=== PATIENT | female | born 1965 | race Caucasian/White ===

== ENCOUNTER 2020-04-08 14:43 | Observation (INO) ==
[2020-04-08] MEDS ORDERED: methylPREDNISolone SOD SUCC 125 MG/2 ML VIAL IV ONE (14:49)
[2020-04-08] MEDS ORDERED: diphenhydrAMINE 50 MG/ML VIAL IV ONE (14:50)
[2020-04-08] MEDS ORDERED: 0.9 % SODIUM CHLORIDE 250 ML IV SCH ×2 (15:00→17:06)
[2020-04-08] MEDS ORDERED: TERBUTALINE 1 MG/ML VIAL SQ ONE (15:01)
[2020-04-08] MEDS ORDERED: FAMOTIDINE/PF 20 MG/2 ML VIAL IV ONE (15:21)
[2020-04-08] MEDS ORDERED: ONDANSETRON 4 MG/2 ML VIAL IV ONE ×2 (15:25)
--- NOTE | 2020-04-08 15:28 | Emergency Department Note ---
Allergic Reaction HPI - General Chief complaint: Allergic Reaction Stated complaint: Swollen Tongue, Trouble breathing Time Seen by Provider: 04/08/20 14:45 Source: patient Mode of arrival: ambulatory Limitations: no limitations - History of Present Illness HPI Narrative: Patient presents to ED with history of swollen tongue. She does use nighttime oxygen, states that last night she had to put her oxygen on, swelling of the tongue developed today. During the course of the day and gradually worsened to the point where she is no longer able to speak . She does indicate pain in her mouth, throat,, denies chest pain, denies eating foods that would precipitate an allergic reaction, she's had no food allergies per se, but she does indicate that she takes lisinopril. The last dose that she took was last night. She presents to ED via private vehicle, at this time. She still able to breathe through her nose, but she is extremely agitated secondary to swollen tongue. MD complaint: facial swelling Onset (ago): hour(s) Exposure: unknown Symptoms: difficulty breathing - Related Data Home Medications Medication Instructions Recorded Confirmed LORazepam [Ativan] 2 mg PO HSP PRN 07/04/16 10/08/19 Levothyroxine [Synthroid] 50 mcg PO DAILY 07/04/16 10/08/19 Lidocaine 5% Oint 1 dose TOPICAL DAILY PRN 07/04/16 10/08/19 Sertraline [Zoloft] 50 mg PO DAILY 07/04/16 10/08/19 metoprolol succinate 25 mg 25 mg PO QDAY 10/27/17 10/08/19 tablet,extended release 24 hr hydrocodone 10 mg-acetaminophen 1 tab PO .COMPLEX PRN tab 09/07/18 10/08/19 325 mg tablet lurasidone 20 mg tablet 20 mg PO QDAY 09/07/18 10/08/19 minocycline 100 mg tablet 100 mg PO .COMPLEX 09/07/18 10/08/19 Previous Rx's Medication Instructions Recorded ipratropium 20 mcg-albuterol 100 1 puff INHALATION Q4H PRN #4 g 10/27/17 mcg/actuation mist for inhalation phenazopyridine 100 mg tablet 100 mg PO TID PRN 0 Days #6 tab 10/08/19 gabapentin 300 mg capsule 300 mg PO TID PRN #90 cap 11/19/19 Allergies Allergy/AdvReac Type Severity Reaction Status Date / Time BAND AIDS Allergy Unknown Rash Uncoded 10/08/19 11:23 Review of Systems Limitations: ROS unobtainable due to patients medical condition Past Medical History - Past Medical History Source: old records reviewed, nursing notes reviewed Medical history: Reports: COPD, hypertension, thyroid disease, other (IBD, melanoma) Psychiatric history: Reports: depression Surgical history ED: Reports: cholecystectomy, hysterectomy, knee replacement, other (orthopedic surgeries) Family history: Reports: non-contributory - Social History smoking status: Former smoker Alcohol use: Reports: None Drug use: Reports: none Physical Exam Limitations: no limitations General appearance: alert, in distress, nontoxic, tearful Head: atraumatic Eye: Present: PERRL, EOMI, conjunctival injection, visual kaplan intact. Absent: periorbital swelling, periorbital tenderness ENT: Present: mucous membranes moist, normal external ear exam, other (enormously swollen tongue, protruding out of her mouth. Extremely edematous and swollen. There is a small laceration on the underside of the tongue was a little bit of bleeding from her teeth piercing. The tongue. She still has breath sounds from breathing through her nose clear. She does not sound stridorous.) Neck: Present: other (short, obese almost nonexisting neck.) Chest: Present: symmetric chest wall rise Respiratory: Present: normal lung sounds bilaterally, respiratory distress, decreased breath sounds. Absent: wheezes Cardiovascular: Present: regular rate, tachycardia Abdominal: Present: soft. Absent: distention, tenderness Extremities: Present: normal inspection, full ROM. Absent: pedal edema Back: Present: normal inspection. Absent: vertebral tenderness Neurological: Present: alert, oriented X3 Psychiatric: Present: normal affect Skin: Present: warm, dry, diaphoretic. Absent: cyanosis, pallor Course - Reevaluation(s) Reevaluation #1: Initially spoke with Dr. manuel, on-call for ENT, who stated that he no longer had the equipment to do nasal intubation with the intubating bronchoscope up. I spoke with anesthesia and they said they would be down immediately. We ordered FFP, we did order medications for her to see if that would help anything, but medication, so far have not affected the swelling, we may have to intubate her because there is concern that she will lose her airway with the amount of swelling that she has, and I explained that as best as I could to the patient and. We'll have her sign a consent form, medications and FFP were ordered. The. Aesthesias here at this time. Talking with the patient. They do have an intubating bronchoscope, which we may have to use at this time given impending airway loss. Reevaluation #2: She had very little relief from Solu-Medrol, Benadryl, etc. After we hung FFP. She seemed to get better in the sense that she was able to vocalize a few words, she was able to bring her lips together over the tongue and she subjectively felt like the tongue swelling was going down the. We will still need to watch her in the ICU with close airway monitoring and intubation readiness. Should her tongue swelling, worsening. Also anesthesia recommended to further units of FFP on standby. Anesthesia was present, ready to intubate. We had her sign a consent form for that. I spoke with DR Barnett regarding observation in the ICU and he will put in. Further orders Vital Signs Pulse Rate 117 H 04/08/20 14:44 Respiratory Rate 24 H 04/08/20 14:44 Blood Pressure 141/73 04/08/20 14:44 Pulse Oximetry (%) 97 04/08/20 14:44 Pulse Rate 120 H 04/08/20 16:21 Respiratory Rate 17 04/08/20 16:21 Blood Pressure 119/87 04/08/20 16:21 Pulse Oximetry (%) 96 04/08/20 16:21 Allergic Reaction - MDM Narrative Medical decision making narrative: Final diagnosis is angioedema acute necessitating close observation in the ICU - Lab Data Lab results reviewed: Yes I reviewed the patient's lab results. Result diagrams: 04/08/20 15:19 04/08/20 15:19 Critical Care Time Critical Care Time: Yes Total Critical Care Time: 20 Attestation: I attest to the fact that the patient needed emergent attention and intervention 20 minutes Disposition Pt seen by PEDIATRIC PSYCHOLOGIST/PA only: No Clinical Impression: Angioedema Disposition: Xfer As Outpt/Obs ([facility]) Condition: Serious Referrals: Ciara Perez ARNP [Primary Care Provider] -
[2020-04-08] MEDS ORDERED: morphine 2 MG/ML VIAL ONE ×2 (15:33→15:45)
[2020-04-08] MEDS ORDERED: KETOROLAC 30 MG/ML VIAL IV ONE (16:07)
[2020-04-08] MEDS ORDERED: ACETAMINOPHEN 1,000 MG/100 ML BOTTLE IV ONE (16:09)
[2020-04-08] MEDS ORDERED: TRANEXAMIC ACID 1,000 MG/10 ML VIAL IV ONE (16:09)
[2020-04-08 16:35] LABS: Basophils # (Auto) 0.15 K/mcL (0.00-0.30); Basophils % (Auto) 1.4 % (0.0-2.0); Eosinophils # (Auto) 0.44 K/mcL (0.00-0.70); Eosinophils % (Auto) 4.2 % (0.0-7.0); Granulocytes % (Auto) 55.1 % (38.0-78.0); Hematocrit 37.6 % (34.1-44.9); Lymphocytes # (Auto) 3.18 K/mcL (1.50-4.80); Lymphocytes % (Auto) 30.5 % (15.5-49.0); Mean Cell Volume 89.5 fL (80.0-100.0); Mean Corpuscular HGB Conc 31.9 g/dL (31.0-36.0); Mean Platelet Volume 11.2 fL (7.4-10.4); Monocytes # (Auto) 0.92 K/mcL (0.10-0.90); Monocytes % (Auto) 8.8 % (1.0-12.0); Platelet Count 340 K/mcL (140-440); Red Cell Distribution Width 15.2 % (11.5-14.5); WBC 10.4 K/mcL (4.50-11.00)
[2020-04-08 17:02] LABS: ALT/SGPT 19 U/l (0-40); AST/SGOT 22 U/l (0-37); Albumin 3.9 gm/dL (3.2-5.2); Alkaline Phosphatase 92 U/L (39-117); Bilirubin,Total 0.2 mg/dL (0.0-1.0); Blood Urea Nitrogen 17 mg/dl (6-20); Calcium 9.8 mg/dl (8.6-10.4); Carbon Dioxide 24 mmol/L (22-30); Chloride 98 mmol/L (96-108); Globulin 3.9 gm/dL (2.2-3.7); Glomerular Filtration Rate 38; Glucose 114 mg/dL (70-105)
[2020-04-08] MEDS ORDERED: ACETAMINOPHEN 325 MG TABLET PO PRN (17:06)
[2020-04-08] MEDS ORDERED: MAGNESIUM SULFATE 2 GM/50 ML BAG IV PRN (17:06)
[2020-04-08] MEDS ORDERED: ONDANSETRON 4 MG ODT TABLET SL PRN (17:06)
[2020-04-08] MEDS ORDERED: ONDANSETRON 4 MG/2 ML VIAL IV PRN (17:06)
[2020-04-08] MEDS ORDERED: PROMETHAZINE 25 MG/ML VIAL IV PRN (17:06)
--- NOTE | 2020-04-08 17:08 | Internal Med History&Physical ---
Medical - H&P: [facility] Patient information: Note initiated : 04/08/20 at 4:48 pm Service Date, if different from initiated Date: [] Patient: Federica Boyer a 55 y/o F admitted on for Swollen Tongue, Trouble breathing. Chief Complaint: [] Chief complaint: Tongue swelling/difficulty opening mouth History of present illness: Ms. Boyer is a 55 year old F with a history of hypertension/inflammatory arthritis/RAD who presents to the ER with rapid onset and progressive tongue swelling that started 2 hours prior to presentation. Patient was's sitting at home reading a book when she started noticing abnormal sensation in her tongue followed by progressive swelling of lips, mouth and throat and tongue. She does not recollect exact precipitant or taking new medications. She denies insect bite or sting. She denies recent changes in diet. She also denies prior similar episode. Initial work-up in the ER was consistent with near airway compromise with secondary tongue swelling. Emergent consultation was sought with anesthesia/surgery for nasotracheal intubation however following administration of IV steroids/antihistamines/anticholinergics and FFP her symptoms started to improve. She over the next hour was able to communicate and phonate. No evidence of stridor. She is complains of persistent throat pain. Hospitalist service was consulted for admission and overnight observation and intubation if necessary if evidence of airway compromise noted. Patient denies fever, chills, diarrhea, headache, lightheadedness or palpitation or shortness of breath. She denies history of hives or drug eruptions in the past Review of systems A 10 point review system was performed and is negative except for ones cussed above Medical - H&P: PMH Medical history: Myalgia (Acute) Inflammatory arthritis (Acute) Polyarthralgia (Acute) Vitamin D deficiency, unspecified (Chronic) Pain in joint (Chronic) Anxiety (Chronic) Persistent insomnia (Chronic) exterminator helper use of drug (Chronic) Hypothyroidism (Chronic) Hypertension, essential (Chronic) Elevated C-reactive protein (CRP) (Acute) Elevated erythrocyte sedimentation rate (Acute) Urinary tract infection (Acute) Vaginitis (Acute) Sore throat (viral) (Acute) Surgical History No pertinent past surgical history (Chronic) Family History Other No pertinent family history Social History smoking status: Former smoker alcohol intake frequency: does not drink substance use type: former substance user, marijuana Lives alone, mother lives nearby Medical - H&P: Meds Home Medications Medication Instructions Recorded Confirmed Type LORazepam [Ativan] 1 mg PO HSP PRN 07/04/16 04/08/20 History Levothyroxine [Synthroid] 88 mcg PO DAILY 07/04/16 04/08/20 History Lidocaine 5% Oint 1 dose TOPICAL DAILY PRN 07/04/16 04/08/20 History ipratropium 20 mcg-albuterol 100 1 puff INHALATION Q4H PRN #4 g 10/27/17 04/08/20 Rx mcg/actuation mist for inhalation hydrocodone 10 mg-acetaminophen 1 tab PO .COMPLEX PRN tab 09/07/18 04/08/20 History 325 mg tablet lurasidone 20 mg tablet 20 mg PO QDAY 09/07/18 10/08/19 History gabapentin 300 mg capsule 300 mg PO TID PRN #90 cap 11/19/19 04/08/20 Rx Latuda 20 mg PO DAILY 04/08/20 04/08/20 History Lisinopril-Hctz 10-12.5 mg Tab 10 mg PO DAILY 04/08/20 04/08/20 History Allergies Allergy/AdvReac Type Severity Reaction Status Date / Time BAND AIDS Allergy Unknown Rash Uncoded 10/08/19 11:23 Medical - H&P: Exam - Constitutional Vitals: Pulse Resp BP Pulse Ox 120 H 17 119/87 96 04/08/20 16:21 04/08/20 16:21 04/08/20 16:21 04/08/20 16:21 General appearance: morbidly obese Exam: Alert and anxious Head normocephalic Oral cavity blocked with diffuse tongue swelling and pooling secretions Eye movement symmetrical Neck no evidence of stridor/lymphadenopathy however diffuse swelling S1-S2 regular rhythm Diminished breath sounds bases with no rhonchi Pendulous abdomen No lower extremity lymphedema/hives/joint swelling Skin no suspicious lesion Psych anxious Neuro nonfocal Medical - H&P: Reslt - Labs CBC & Chem 7: 04/08/20 15:19 04/08/20 15:19 Labs: Short CBC 04/08/20 Range/Units 15:19 WBC 10.4 (4.50-11.00) K/mcL Hgb 12.0 (11.2-15.7) g/dL Hct 37.6 (34.1-44.9) % Plt Count 340 (140-440) K/[facility] Medical - H&P: A/P (1) Angioedema Current visit: Yes Status: Acute * Acute angioedema possibly IRINA inhibitor mediated. Continue FFP/antihistamines/steroids. Close monitoring for airway compromise/stridor. Anesthesia consult for intubation if necessary. Admit as observation * Hypothyroidism contraction * Neuropathy continue gabapentin * Degenerative joint disease continue hydrocodone * Anxiety continue lorazepam * Hypertension hold IRINA inhibitor. Continue thiazide * Full code * Prophylaxis heparin Plan * Observation ICU admit * Intubate if evidence of airway compromise * FFP additional 2 units * Close hemodynamic monitoring * Anesthesia consult
--- NOTE | 2020-04-08 18:07 | General Surgery Progress Note ---
Surgical - Auxillary Note - Subjective Patient Information: Note initiated : 04/08/20 at 5:59 pm Service Date, if different from initiated Date: [] Patient: Federica Boyer 55 y/o F admitted on 04/08/20 for Swollen Tongue, Trouble breathing. Chief Complaint: Called to ER at 1500pm by Dr. Roa for patient with severe a ngioedema suspected from IRINA inhibitor reaction. Verbally ordered 2 units Fresh Frozen Plasma and 1gm Tranexamic Acid. Arrived at bedside by 1505pm. Patient airway assessed, severe angioedema noted. Vital signs stable. Benadryl, toradol, orfimev, and morphine ordered. Patient asked only yes/no questions as she was unable to talk. Waited for FFP to arrive as patient was in distress but stable. Able to talk to patient and keep her calm and focus on controlled breathing. Upon administration of FFP at approximately 1545pm, patient's angioedema resolving, patient slowly able to close mouth and eventually begin to vocalize relief of airway discomfort and breathing. Patient transferred to ICU and report given to Dr. Manzanares. Discussed FFP and tranexamic acid intermittently throughout the night. Back up plan was planned and prepared to be awake nasal intubation with fiberoptic scope and general surgery at bedside for emergent tracheostomy/cricothyrotomy if needed.
[2020-04-08] MEDS: morphine 2 MG/ML VIAL IV PRN (19:20)
[2020-04-08] MEDS: HEPARIN 5,000 UNIT/ML VIAL SQ SCH (20:29)
[2020-04-08] MEDS: 0.9 % SODIUM CHLORIDE 10 ML SYRINGE IV SCH (20:30)
[2020-04-08] MEDS ORDERED: SENNOSIDES/DOCUSATE SODIUM 1 TAB TABLET PO SCH (21:00)
[2020-04-08] MEDS ORDERED: LORazepam 2 MG/ML VIAL IV ONE (22:47)
[2020-04-08] MEDS ORDERED: LORazepam 2 MG/ML VIAL ONE (23:09)
[2020-04-09] MEDS: morphine 2 MG/ML VIAL IV PRN ×2 (02:01→06:50)
[2020-04-09] MEDS: 0.9 % SODIUM CHLORIDE 10 ML SYRINGE IV SCH (06:00)
[2020-04-09 07:02] LABS: Hematocrit 32.4 % (34.1-44.9); Hemoglobin 10.2 g/dL (11.2-15.7); Mean Cell Volume 90.3 fL (80.0-100.0); Mean Corpuscular HGB Conc 31.5 g/dL (31.0-36.0); Mean Platelet Volume 10.6 fL (7.4-10.4); Platelet Count 292 K/mcL (140-440); RBC 3.59 M/mcL (3.59-5.38); Red Cell Distribution Width 15.1 % (11.5-14.5); WBC 10.4 K/mcL (4.50-11.00)
[2020-04-09 07:43] LABS: ALT/SGPT 21 U/l (0-40); AST/SGOT 23 U/l (0-37); Albumin 3.8 gm/dL (3.2-5.2); Albumin/Globulin Ratio 1.1 (1.0-2.3); Alkaline Phosphatase 82 U/L (39-117); Bilirubin,Direct < 0.2 mg/dL (0.0-0.3); Bilirubin,Total 0.2 mg/dL (0.0-1.0); Calcium 9.4 mg/dl (8.6-10.4); Carbon Dioxide 24 mmol/L (22-30); Chloride 102 mmol/L (96-108); Globulin 3.6 gm/dL (2.2-3.7); Glomerular Filtration Rate 35; Glucose 134 mg/dL (70-105); Lactate Dehydrogenase 171 U/L (94-250); Phosphorous 3.2 mg/dL (2.7-4.5); Triglycerides 78 mg/dl (<150); Uric Acid 8.8 mg/dL (2.5-8.0)
[2020-04-09 08:03] LABS: Blood Urea Nitrogen 23 mg/dl (6-20)
[2020-04-09 08:17] LABS: Band Neutrophils % 1 % (0-10); Lymphocytes % 10 % (15-49); Monocytes % (Manual) 1 % (1-12); Platelet Estimate NORMAL (NORMAL); RBC Morphology NORMAL (NORMAL); Segmented Neutrophils % 88 % (38-78)
[2020-04-09] MEDS: HEPARIN 5,000 UNIT/ML VIAL SQ SCH (08:35)
[2020-04-09] MEDS ORDERED: amLODIPine 5 MG TABLET PO SCH (09:00)
[2020-04-09] MEDS ORDERED: FUROSEMIDE 20 MG/2 ML VIAL IV ONE (10:08)
--- NOTE | 2020-04-09 10:10 | Discharge Summary ---
Medical - DS: Prov Patient information: Note initiated : 04/09/20 at 10:08 am Service Date, if different from initiated Date: [] Patient: Federica Boyer 55 y/o F admitted on 04/08/20 for Swollen Tongue, Trouble breathing. Chief Complaint: [] Date of admission: 04/08/20 17:00 Discharge date: 04/09/20 Primary care physician: Ciara Perez Consults: 04/08/20 Consult to Physician [CONS] Stat Comment: Consulting Provider: Zay Manzanares Reason For Exam: Physician to Consult Consult to Physician [CONS] Stat Comment: Consulting Provider: Lloyd Ferguson Reason For Exam: Physician to Consult Medical - DS: Meds - Discharge Medications Prescriptions: Hydrochlorothiazide 12.5 mg PO DAILY #30 cap Transmission Status: Received by [facility] amLODIPine [Norvasc] 5 mg PO DAILY #30 tab Transmission Status: Received by [facility] Active and Home Medications: Home Medications LORazepam [Ativan] 1 mg PO HSP PRN 07/04/16 [History Confirmed 04/08/20 Last Taken Unknown] Levothyroxine [Synthroid] 88 mcg PO DAILY 07/04/16 [History Confirmed 04/08/20 Last Taken Unknown] Lidocaine 5% Oint 1 dose TOPICAL DAILY PRN 07/04/16 [History Confirmed 04/08/20 Last Taken Unknown] ipratropium 20 mcg-albuterol 100 mcg/actuation mist for inhalation 1 puff INHALATION Q4H PRN #4 g 10/27/17 [Rx Confirmed 04/08/20 Last Taken Unknown] hydrocodone 10 mg-acetaminophen 325 mg tablet 1 tab PO .COMPLEX PRN tab 09/07/18 [History Confirmed 04/08/20 Last Taken Unknown] lurasidone 20 mg tablet 20 mg PO QDAY 09/07/18 [History Confirmed 04/09/20 Last Taken Unknown] gabapentin 300 mg capsule 300 mg PO TID PRN #90 cap 11/19/19 [Rx Confirmed 04/08/20 Last Taken Unknown] Hydrochlorothiazide 12.5 mg PO DAILY #30 cap 04/09/20 [Rx Last Taken Unknown] amLODIPine [Norvasc] 5 mg PO DAILY #30 tab 04/09/20 [Rx Last Taken Unknown] Medical - DS: Hosp Hospital Course: Discharge diagnosis * Acute angioedema possibly IRINA inhibitor mediated. Clinical improvement noted on FFP infusion/antihistamines/steroids. Much improved tongue swelling. Able to vocalize, swallow and eat. Discharging home with advised to discontinue IRINA inhibitor * Hypothyroidism -continue thyroxine * Neuropathy continue gabapentin * Degenerative joint disease continue hydrocodone * Anxiety continue home dose lorazepam * Hypertension continue thiazide/amlodipine 5 mg. Discontinued IRINA inhibitor. Brief hospital course Ms. Boyer is a 55 year old F with a history of hypertension/inflammatory arthritis/RAD who presents to the ER with rapid onset and progressive tongue swelling that started 2 hours prior to presentation. Patient was's sitting at home reading a book when she started noticing abnormal sensation in her tongue followed by progressive swelling of lips, mouth and throat and tongue. She does not recollect exact precipitant or taking new medications. She denies insect bite or sting. She denies recent changes in diet. She also denies prior similar episode. Initial work-up in the ER was consistent with near airway compromise with secondary tongue swelling. Emergent consultation was sought with anesthesia/surgery for nasotracheal intubation however following administration of IV steroids/antihistamines/anticholinergics and FFP her symptoms started to improve. She over the next hour was able to communicate and phonate. No evidence of stridor. She is complains of persistent throat pain. Hospitalist service was consulted for admission and overnight observation and intubation if necessary if evidence of airway compromise noted. Patient denies fever, chills, diarrhea, headache, lightheadedness or palpitation or shortness of breath. She denies history of hives or drug eruptions in the past 04/09.-Patient clinically improved following administration of FFP/antihistamines and steroids. Able to swallow/vocalize and eat. No overnight events. No evidence of airway compromise. Discharging home with advised to follow-up with primary care physician. Advised to refrain from future use of IRINA inhibitor's due to life-threatening angioedema. Discharge diagnosis: . - Time Spent with Patient Total time spent providing and/or coordinating discharge services: Greater than 30 minutes Medical - DS: Exam - Constitutional Vitals: Vital Signs Temp Pulse Pulse Resp BP BP Pulse Ox 04/09/20 08:16 116 H 17 95 04/09/20 08:01 98.6 F 117 H 20 138/86 94 04/09/20 07:11 18 96 04/09/20 07:01 113 H 15 104/66 95 04/09/20 06:01 113 H 15 142/83 96 04/09/20 05:00 110 H 14 146/85 99 04/09/20 04:01 98.1 F 111 H 15 149/99 99 04/09/20 03:01 112 H 17 134/87 98 04/09/20 02:01 117 H 23 H 129/102 99 04/09/20 02:00 95 04/09/20 01:01 118 H 17 131/80 98 04/09/20 00:48 117 H 18 142/81 97 04/09/20 00:16 117 H 18 130/65 96 04/09/20 00:01 98.4 F 116 H 15 117/73 95 04/08/20 23:59 116 H 17 112/70 94 04/08/20 23:01 115 H 18 125/69 92 04/08/20 22:01 117 H 17 123/90 96 04/08/20 21:01 119 H 19 106/60 93 04/08/20 20:16 97.7 F 117 H 17 119/70 96 04/08/20 20:01 119 H 17 114/72 97 04/08/20 20:00 97 04/08/20 19:16 99.0 F 120 H 15 118/67 97 04/08/20 19:06 121 H 20 125/74 95 04/08/20 19:01 98.6 F 120 H 20 116/63 95 04/08/20 18:01 122 H 18 124/72 95 04/08/20 17:46 123 H 23 H 118/104 93 04/08/20 17:31 18 122/70 96 04/08/20 17:20 20 122/71 96 04/08/20 17:06 99.9 F H 33 H 122/81 97 04/08/20 17:00 99.0 F 117 H 122 H 20 133/82 122/70 95 04/08/20 16:55 117 H 21 95 04/08/20 16:51 119 H 20 133/82 93 04/08/20 16:46 120 H 18 128/78 93 04/08/20 16:41 119 H 18 121/98 95 04/08/20 16:36 120 H 21 140/81 92 04/08/20 16:31 121 H 20 131/88 94 04/08/20 16:26 119 H 17 129/108 95 04/08/20 16:21 120 H 17 119/87 96 04/08/20 16:20 120 H 14 97 04/08/20 16:16 120 H 21 129/83 94 04/08/20 16:11 119 H 18 155/128 92 04/08/20 16:08 120 H 29 H 132/89 97 04/08/20 16:07 114 H 29 H 94 04/08/20 16:06 119 H 21 96 04/08/20 16:01 116 H 18 149/94 96 04/08/20 15:56 120 H 21 131/69 95 04/08/20 15:51 119 H 19 164/66 98 04/08/20 15:46 123 H 19 165/80 97 04/08/20 15:41 125 H 16 97 04/08/20 15:36 123 H 26 H 99 04/08/20 15:34 123 H 20 210/149 98 04/08/20 15:33 20 96 04/08/20 15:31 123 H 25 H 210/149 98 04/08/20 15:28 19 04/08/20 15:22 128 H 23 H 144/113 97 04/08/20 15:16 113 H 13 147/99 99 04/08/20 15:01 116 H 15 171/128 98 04/08/20 15:00 15 04/08/20 14:44 117 H 24 H 141/73 97 Intake and Output 04/08/20 04/09/20 04/09/20 21:59 05:59 13:59 Intake Total 822 197 Output Total 350 300 125 Balance 472 -103 -125 Intake: IV 168 Sodium Chloride 0.9% 250 ml @ 68 20 mls/hr IV .[id number] [facility] Rx#: [id number] Blood Product 654 197 Output: Void Amount 350 300 125 Other: Urine Appearance Clear Clear Clear Urine Color Bright Yellow Bright Yellow Bright Yellow Weight 308 lb 6.4 oz Medical - DS: Data Labs on day of discharge: Labs from last 24 hours 04/09/20 04/09/20 04/08/20 05:05 05:05 15:19 WBC 10.4 RBC 3.59 Hgb 10.2 L Hct 32.4 L MCV 90.3 MCH 28.4 MCHC 31.5 RDW 15.1 H Plt Count 292 MPV 10.6 H Gran % Lymph % (Auto) [place] % (Auto) Eos % (Auto) Baso % (Auto) Gran # Lymph # (Auto) [place] # (Auto) Eos # (Auto) Baso # (Auto) Total Counted 100 Seg Neutrophils % 88 H Band Neutrophils % 1 Lymphocytes % 10 L Monocytes % (Manual) 1 Platelet Estimate Normal RBC Morphology Normal Sodium 138 Potassium 5.5 H Chloride 102 Carbon Dioxide 24 Anion Gap 12.0 BUN 23 H Creatinine 1.6 H GFR Calculation 35 Glucose 134 H Uric Acid 8.8 H Calcium 9.4 Phosphorus 3.2 Magnesium 1.6 Total Bilirubin 0.2 Direct Bilirubin < 0.2 GGT 47 H AST 23 ALT 21 Alkaline Phosphatase 82 Lactate Dehydrogenase 171 Troponin T < 0.01 Total Protein 7.4 Albumin 3.8 Globulin 3.6 Albumin/Globulin Ratio 1.1 Triglycerides 78 04/08/20 04/08/20 15:19 15:19 WBC 10.4 RBC 4.20 Hgb 12.0 Hct 37.6 MCV 89.5 MCH 28.6 MCHC 31.9 RDW 15.2 H Plt Count 340 MPV 11.2 H Gran % 55.1 Lymph % (Auto) 30.5 [place] % (Auto) 8.8 Eos % (Auto) 4.2 Baso % (Auto) 1.4 Gran # 5.74 Lymph # (Auto) 3.18 [place] # (Auto) 0.92 H Eos # (Auto) 0.44 Baso # (Auto) 0.15 Total Counted Seg Neutrophils % Band Neutrophils % Lymphocytes % Monocytes % (Manual) Platelet Estimate RBC Morphology Sodium 139 Potassium 4.4 Chloride 98 Carbon Dioxide 24 Anion Gap 17.0 H BUN 17 Creatinine 1.5 H GFR Calculation 38 Glucose 114 H Uric Acid Calcium 9.8 Phosphorus Magnesium Total Bilirubin 0.2 Direct Bilirubin GGT AST 22 ALT 19 Alkaline Phosphatase 92 Lactate Dehydrogenase Troponin T Total Protein 7.8 Albumin 3.9 Globulin 3.9 H Albumin/Globulin Ratio 1.0 Triglycerides Medical - DS: A/P - Patient/Caregiver Discharge Instructions Activity: increase activity as tolerated Diet: Regular Diet Additional Instructions: Discontinue IRINA inhibitor Follow-up PCP in 7 days--See scheduled appointment Prescriptions: Hydrochlorothiazide 12.5 mg PO DAILY #30 cap Transmission Status: Received by [facility] amLODIPine [Norvasc] 5 mg PO DAILY #30 tab Transmission Status: Received by [facility] - Problem Maintenance (1) Angioedema Status: Acute - Follow up Plan Follow up with: Carlos Manuel Jalloh ARNP [Nurse Practitioner] - 04/15/20 10:00 am () Disposition: Home, Self-Care Care Plan Goals: This discharge packet is provided to you to help keep you informed about your care. We want to ensure you get everything you need when you go home. You will also be receiving a call from us in a few days to follow up with you and see how you are doing since your discharge. This gives us a chance to listen to any concerns you maybe experiencing since you were discharged or any additional needs you may have, as well as providing us feedback on your care experience. We strive to always provide excellent care and thank you for your feedback and for choosing [facility]. Prognosis: Fair Rehab Potential: Fair I certify that the patient requires SNF services: No Overall status at discharge: patient is progressing back to baseline Medical - DS: Qual - VTE Deep Vein Thrombosis/Pulmonary Embolism Present on Admission: No
== END 2020-04-09 12:15 | disposition home or self-care (01) ==
LOC: ED 14:43 → ICU 14:43
PROVIDERS: ADMIT Internal Medicine; ATTEND Internal Medicine